=== PATIENT | female | born 1990 | race Hispanic/Latino ===

== ENCOUNTER 2019-01-31 10:55 | Outpatient (CLI) | payer OTHER ==
--- NOTE | 2019-01-31 11:16 | ULT ---
LEFT BREAST ULTRASOUND: Date: 01/31/19 HISTORY: Pain in left breast at 2 o'clock position. FINDINGS/IMPRESSION: Sonographic evaluation of the region of pain in the 2 o'clock position of the left breast (8 cm from nipple) demonstrates no abnormality. POS: OFF
== END 2019-01-31 10:56 | disposition home or self-care (01) ==
LOC: BICULT 10:55
PROVIDERS: ATTEND Physician Assistant
DX: N64.4 Mastodynia (principal)

== ENCOUNTER 2023-10-12 07:19 | Outpatient (CLI) | payer OTHER | END 2023-10-12 07:20 | disposition home or self-care (01) | LOC: BICULT 07:19 | PROVIDERS: ATTEND Family Medicine | DX: O09.892 Supervision of other high risk pregnancies, second trimester (principal); Z3A.19 19 weeks gestation of pregnancy | CPT/HCPCS: 76805 ==